=== PATIENT | female | born 2000 | race Hispanic/Latino ===

== ENCOUNTER 2021-06-19 08:48 | Outpatient (CLI) | payer OTHER | END 2021-06-19 08:49 | disposition home or self-care (01) | LOC: BICULT 08:48 | PROVIDERS: ATTEND Family Medicine | DX: Z34.02 Encounter for supervision of normal first pregnancy, second trimester (principal); Z3A.20 20 weeks gestation of pregnancy | CPT/HCPCS: 76805 ==